=== PATIENT | female | born 1965 | race American Indian/Alaskan Native ===

== ENCOUNTER 2016-10-15 09:19 | Outpatient (CLI) | payer BC ==
--- NOTE | 2016-10-16 09:40 | PET Report ---
PET/CT:10/15/16 09:19:00 CLINICAL: Breast cancer and lung cancer restaging. She was diagnosed with right breast cancer by needle biopsy 08/06/15 and diagnosed with non-small cell lung cancer involving the right upper lobe by needle biopsy 09/19/15. RADIOPHARMACEUTICAL: 13.4mCi F18-FDG. COMPARISON: 09/12/15 PET/CT TECHNIQUE- Following intravenous injection of F-18 FDG and an approximately 60 minute uptake period, CT and PET images from the mid skull to the upper thighs were acquired with the patient in the fasted state. No contrast was administered. The CT protocol used for this PET CT study is designed for attenuation correction and anatomic localization of PET abnormalities. This guide setter CT is not desired to produce and cannot replace, dklfq-rr-xej-art diagnostic CT scans with specific imaging protocols for different body parts and indications. Plasma glucose at the time of this test: 166g/dl. The standardized uptake values (SUV) are normalized to patient body weight and indicate the highest activity concentration (SUV max) in a given disease site. FINDINGS: Brain--Physiologic FDG uptake in the visualized regions of the brain. Neck--Physiologic FDG uptake . Chest--Physiologic FDG uptake in mediastinal blood pool and myocardium. Lungs--No abnormal uptake. Status post right upper lobectomy and status post right mastectomy since the last exam. No pulmonary nodule or mass. Pleura/pericardium--No abnormal uptake. Thoracic nodes--No abnormal uptake. Hepatobiliary--No abnormal uptake. Liver background SUV mean, as a reference for comparing FDG studies, is compared to on the last exam. No liver mass. Spleen--No abnormal uptake. Pancreas--No abnormal uptake. Adrenal Glands--No abnormal uptake. Kidneys/Ureters/Bladder--No abnormal uptake. Status post right nephrectomy. Abdominopelvic Nodes--No abnormal uptake. Bowel/Peritoneum/Mesentery--No abnormal uptake. Pelvic organs--No abnormal uptake. Bones/Soft Tissues--No abnormal uptake. No suspicious bone lesions. Other findings: Left Ungnzt-w-Grtx tip is in the SVC. IMPRESSION- Negative study with no evidence of disease recurrence or metastasis.
== END 2016-10-15 09:20 | disposition home or self-care (01) ==
LOC: PET 09:19
PROVIDERS: ATTEND Internal Medicine Hematology & Oncology
DX: C50.111 Malignant neoplasm of central portion of right female breast (principal); C34.11 Malignant neoplasm of upper lobe, right bronchus or lung; G89.12 Acute post-thoracotomy pain; R06.02 Shortness of breath; Z90.2 Acquired absence of lung [part of]; Z90.11 Acquired absence of right breast and nipple; Z90.5 Acquired absence of kidney
CPT/HCPCS: 78815; 82962; A9552

== ENCOUNTER 2016-12-22 12:39 | Outpatient (CLI) | payer OTHER ==
[2016-12-22] MEDS ORDERED: PROVENTIL IH ONE (12:51)
== END 2016-12-22 12:40 | disposition home or self-care (01) ==
LOC: PF 12:39
PROVIDERS: ATTEND Internal Medicine
DX: C34.90 Malignant neoplasm of unspecified part of unspecified bronchus or lung (principal); C50.919 Malignant neoplasm of unspecified site of unspecified female breast; C64.9 Malignant neoplasm of unspecified kidney, except renal pelvis; C73 Malignant neoplasm of thyroid gland
CPT/HCPCS: 94060; 94640

== ENCOUNTER 2016-12-22 15:26 | Outpatient (CLI) | payer BC ==
--- NOTE | 2016-12-23 09:08 | Magnetic Resonance Report ---
MRI BRAIN WITHOUT CONTRAST: 12/22/16 15:26:00 CLINICAL: Breast and lung cancer. TECHNIQUE: Axial diffusion, T1, T2, FLAIR, gradient echo T2*, and sagittal T1 sequences on a 1.5 Eva magnet without contrast. She declined contrast. FINDINGS: Normal ventricles and sulci. No restricted diffusion. Moderate bilateral multifocal nonspecific subcortical and deep white matter hyperintensities on FLAIR and T2. No mass or mass effect. No hemorrhage, edema or extra-axial collection. Normal pituitary and optic chiasm. The brainstem and cerebellum are normal. Intact vascular flow voids. Normal sinuses. The orbits, and soft tissues are normal. Normal calvarium and skull base. IMPRESSION: 1. Moderate bilateral multifocal white matter hyperintensities on FLAIR and T2. Although these hyperintensities are nonspecific, chronic microvascular ischemic change is the most likely etiology. 2. No evidence of metastasis. 3. No acute change.
== END 2016-12-22 15:27 | disposition home or self-care (01) ==
LOC: SPVIMAG 15:26
PROVIDERS: ATTEND Internal Medicine Hematology & Oncology
DX: C34.11 Malignant neoplasm of upper lobe, right bronchus or lung (principal)
CPT/HCPCS: 70551

== ENCOUNTER 2017-04-29 09:20 | Outpatient (CLI) | payer BC | END 2017-04-29 09:21 | disposition home or self-care (01) | LOC: PET 09:20 | PROVIDERS: ATTEND Internal Medicine Hematology & Oncology | DX: C50.111 Malignant neoplasm of central portion of right female breast (principal); C34.11 Malignant neoplasm of upper lobe, right bronchus or lung; R35.0 Frequency of micturition | CPT/HCPCS: 82962 ==

== ENCOUNTER 2017-05-06 09:19 | Outpatient (CLI) | payer BC ==
--- NOTE | 2017-05-06 13:51 | PET Report ---
PET SB TO MT INITIAL: HISTORY: Breast cancer, lung cancer. TECHNIQUE: 14.2 millicuries F-18 FDG was administered intravenously. Noncontrast CT images and PET images were obtained from the skull base to the proximal thighs. Fused images were reviewed on a workstation. The patient's blood glucose level measured 200. COMPARISON: 10/15/16. FINDINGS: BRAIN: physiologic FDG uptake in the imaged brain. NECK: physiologic FDG uptake. CHEST WALL: Stable right mastectomy changes. No chest wall mass or abnormal uptake. MEDIASTINUM: physiologic FDG uptake. LUNGS: physiologic FDG uptake. PLEURA/PERICARDIUM: physiologic FDG uptake. THORACIC LYMPH NODES: physiologic FDG uptake. HEPATOBILIARY: physiologic FDG uptake. Mean liver SUV measures 5.2. PANCREAS: physiologic FDG uptake. SPLEEN: physiologic FDG uptake. ADRENAL GLANDS: physiologic FDG uptake. KIDNEYS/RENAL COLLECTING SYSTEMS: physiologic FDG uptake. Stable right nephrectomy changes. BOWEL/MESENTERY: physiologic FDG uptake. PELVIC VISCERA: physiologic FDG uptake. Multiple partially calcified uterine fibroids are stable. ABDOMINAL/PELVIC LYMPH NODES: physiologic FDG uptake. MUSCULOSKELETAL: physiologic FDG uptake. IMPRESSION: Negative PET/CT. No evidence for disease recurrence or metastasis. Stable finding since 10/15/16.
== END 2017-05-06 09:20 | disposition home or self-care (01) ==
LOC: PET 09:19
PROVIDERS: ATTEND Internal Medicine Hematology & Oncology
DX: C50.111 Malignant neoplasm of central portion of right female breast (principal); C34.11 Malignant neoplasm of upper lobe, right bronchus or lung; R35.0 Frequency of micturition; D25.9 Leiomyoma of uterus, unspecified; Z90.11 Acquired absence of right breast and nipple; Z90.5 Acquired absence of kidney
CPT/HCPCS: 78815; 82962; A9552

== ENCOUNTER 2020-06-11 13:25 | Outpatient (CLI) | payer OTHER ==
--- NOTE | 2020-06-11 14:31 | Mammography Report ---
DIGITAL SCREENING MAMMOGRAM WITH CAD, 06/11/2020 CLINICAL INFORMATION / INDICATION: Routine screening mammography. Left breast pain. TECHNIQUE: Digital left 2D mammography was obtained in the craniocaudal and mediolateral oblique pro jections. This examination was interpreted with the benefit of Computer-Aided Detection analysis. COMPARISON: 02/05/20. FINDINGS: Breast Density: There are scattered areas of fibroglandular density. No dominant mass, suspicious calcifications, or architectural distortion in the left breast. IMPRESSION: No mammographic evidence of malignancy. Follow up recommendation: Routine yearly BI-RADS Category 1: Negative. A "normal" or negative report should not discourage follow up or biopsy of a clinically significant f inding. A written summary of these findings will be mailed to the patient. The patient will be entered into a mammography reporting system which will generate a reminder letter for the patient's next appointmen t at the appropriate interval. The [employer] recommends yearly mammograms starting at age 40 and continuing as l addis as a woman is in good health. Breast MRI is recommended for women with an approximate 20-25% or greater lifetime risk of breast cancer, including women with a strong family history of breast or ova chuck cancer or who have been treated for Hodgkin's disease. Signer Name: Pipo Rivas MD Signed: 06/11/2020 2:27 PM Workstation Name: [id number]
== END 2020-06-11 13:26 | disposition home or self-care (01) ==
LOC: MAMMO 13:25
PROVIDERS: ATTEND Internal Medicine Hematology & Oncology
DX: C50.111 Malignant neoplasm of central portion of right female breast (principal); C34.11 Malignant neoplasm of upper lobe, right bronchus or lung; R35.0 Frequency of micturition; N64.89 Other specified disorders of breast